=== PATIENT | female | born 1945 | race Caucasian/White ===

== ENCOUNTER 2023-02-18 10:39 | Emergency (ER) | payer OTHER ==
[2023-02-18 11:29] LABS: Absolute Lymphocytes (CBC) 1.5 K/uL (0.7-4.9); Hematocrit 37.2 % (36.0-45.0); Lymphocytes % 22.7 % (15.3-44.8); MCV 91.8 fL (80-100); MPV 8.5 fL (7.6-11.3); Platelets 260 thou/uL (152-406); RBC Red Blood Cell Count 4.05 M/uL (3.86-4.86)
[2023-02-18 11:35] LABS: Protime INR 1.04
[2023-02-18 11:46] LABS: Albumin 3.3 g/dL (3.4-5.0); Bilirubin Direct 0.1 mg/dL (0-0.2); Bilirubin Indirect, Calculated 0.2 mg/dL (0.2-0.8); Bilirubin Total 0.3 mg/dL (0.2-1.0); Magnesium 2.3 mg/dL (1.6-2.4); Potassium 3.6 mEq/L (3.5-5.1); Protein, Total 6.8 g/dL (6.4-8.2); Troponin High Sensitivity 11.7 pg/mL (<58.9)
--- NOTE | 2023-02-18 11:47 | RAD REPORT ---
EXAM DESCRIPTION: CT - Head C Spine Cap Wo Con - 02/18/2023 11:34 am CLINICAL HISTORY: Trauma, head and neck injury. Chest, abdomen and pelvis pain. DIZZINESS COMPARISON: <Comparisons> TECHNIQUE: CT head without contrast. CT cervical spine without contrast with coronal and sagittal reformatted images. CT chest, abdomen and pelvis without contrast with coronal and sagittal reformatted images of the spi ne. All CT scans are performed using dose optimization technique as appropriate and may include automated exposure control or mA/KV adjustment according to patient size. FINDINGS: CT HEAD WITHOUT CONTRAST: No intracranial hemorrhage, hydrocephalus or extra-axial fluid collection. Mild generalized brain atr ophy is present with moderate periventricular and deep white matter chronic microvascular ischemic ch anges. No areas of brain edema or midline shift. The paranasal sinuses and mastoids are clear. The calvarium is intact. CT CERVICAL SPINE WITHOUT CONTRAST: No fracture or subluxation. Mild lower cervical degenerative changes. The prevertebral soft tissues a re normal in thickness. CT CHEST, ABDOMEN, PELVIS WITHOUT CONTRAST: NOTE: Lack of contrast is a significant limitation in the assessment of trauma related findings. Spec ifically, solid organ, vascular and bowel evaluation is significantly limited. The lungs are clear.No pneumothorax or pericardial/pleural fluid. No evidence of intra-abdominal visceral injury, free fluid or free air is seen within the above detai led limitations. Significant stool is present throughout the colon postsurgical changes are present in the rectum. Pro minent right inguinal lymph nodes are seen, nonspecific, largest measuring 23 mm. No fractures. Mild lumbar degenerative changes. IMPRESSION: Negative for acute traumatic findings within the above detailed limitations. Constipation.
[2023-02-18 13:58] LABS: Specific Gravity 1.014 (1.005-1.030); Urine Bilirubin NEGATIVE (Negative); Urine Blood Negative (Negative); Urine Clarity Clear (Clear); Urine Color Light-Yellow (Yellow); Urine Glucose NEGATIVE (Negative); Urine Protein NEGATIVE (Negative); Urine Urobilinogen Normal (Normal)
--- NOTE | 2023-02-18 14:09 | EDPHYS ---
Physician Documentation [facility] Name: Inessa Graham Age: 77 yrs Sex: Female : 1945 Arrival Date: 02/18/2023 Time: 10:39 Bed 8 Private MD: ED Physician Chauncey Sainz HPI: 02/18 13:55 This 77 yrs old Female presents to ER via EMS with complaints of hypotension. sb4 17:57 Patient states that she was feeling a little dizzy this morning so she had her sb4 's home health nurse check her blood pressure and stated it was low and prompted them to call EMS. Upon EMS arrival, they said her BP was 88/66 and started some IV fluids. Patient is not on any antihypertensives or any other medications. Blood pressure is normal upon arrival to the ED. She is asymptomatic at this time. Historical: - Allergies: 10:46 No Known Allergies; ko1 - Immunization history:: Adult Immunizations up to date. - Social history:: Smoking status: Patient denies any tobacco usage or history of. ROS: 17:57 Constitutional: Negative for fever, chills, and weight loss, sb4 17:57 Neuro: Positive for dizziness, 17:57 All other systems are negative, Exam: 17:57 Constitutional: This is a well developed, well nourished patient who is awake, alert, sb4 and in no acute distress. Head/Face: Normocephalic, atraumatic. Eyes: Extra-ocular motions intact. Periorbital areas with no swelling, redness, or edema. ENT: Mucous membranes moist. Cardiovascular: Regular rate and rhythm with a normal S1 and S2. Respiratory: Lungs have equal breath sounds bilaterally, clear to auscultation and percussion. No rales, rhonchi or wheezes noted. No increased work of breathing, no retractions or nasal flaring. Abdomen/GI: Soft, non-tender, no distension. Skin: Warm, dry with normal turgor. Normal color with no rashes, no lesions, and no evidence of cellulitis. MS/ Extremity: Pulses equal, no cyanosis. Neurovascular intact. Full, normal range of motion. Neuro: Awake and alert, GCS 15, oriented to person, place, time, and situation. Motor strength 5/5 in all extremities. Sensory grossly intact. Vital Signs: 10:43 BP 117 / 56; Pulse 72; Resp 16; Temp 97; Pulse Ox 99% on R/A; ko1 11:40 BP 122 / 59 Supine; Pulse 72; Resp 16; Pulse Ox 100% on R/A; ko1 11:41 BP 127 / 62 Sitting; Pulse 74; Resp 14; Pulse Ox 99% ; ko1 11:43 BP 126 / 65 Standing; Pulse 79; Resp 14; Pulse Ox 100% on R/A; ko1 MDM: 10:41 Patient medically screened. sb4 17:57 Differential Diagnosis Hypovolemia, orthostatic hypotension, idiopathic hypotension. sb4 Data reviewed: vital signs, nurses notes, EMS record, lab test result(s), EKG, radiologic studies, I have discussed the patient's presentation/case with the attending Emergency Department Physician; and as a result, I will discharge patient. Consideration of Admission/Observation Escalation of care including admission/observation considered. Historians other than the Patient: Daughter/Son: Daughter over the phone. Counseling: I had a detailed discussion with the patient and/or guardian regarding the historical points, exam findings, and any diagnostic results supporting the discharge/admit diagnosis, lab results, radiology results, the need for outpatient follow up, for definitive care, to return to the emergency department if symptoms worsen or persist or if there are any questions or concerns that arise at home. ED course: BP normal in the ED after IV fluids. She is completely asymptomatic. Neurologic exam is benign. Instructed patient to continue to monitor her blood pressure at home and drink lots of fluids. She understands. Ambulated well. Orthostatics negative. She is safe to discharge. 02/18 10:50 Order name: Basic Metabolic Panel; Complete Time: 11:48 sb4 02/18 10:50 Order name: CBC with Diff; Complete Time: 11:40 sb4 02/18 10:50 Order name: Hepatic Function; Complete Time: 11:48 sb4 02/18 10:50 Order name: Magnesium; Complete Time: 11:48 sb4 02/18 10:50 Order name: Protime (+inr); Complete Time: 11:40 sb4 02/18 10:50 Order name: Ptt, Activated; Complete Time: 11:40 sb4 02/18 10:50 Order name: Troponin High Sensitivity; Complete Time: 11:48 sb4 02/18 10:50 Order name: Urinalysis w/ reflexes; Complete Time: 13:59 sb4 02/18 10:50 Order name: CT Traumagram (Head C Spine CAP wo con): hypotension, dizziness; Complete sb4 Time: 11:48 02/18 10:50 Order name: EKG; Complete Time: 10:50 sb4 02/18 10:50 Order name: Cardiac monitoring; Complete Time: 10:58 sb4 02/18 10:50 Order name: EKG - Nurse/Tech; Complete Time: 11:20 sb4 02/18 10:50 Order name: IV Saline Lock; Complete Time: 10:58 sb4 02/18 10:50 Order name: Labs collected and sent; Complete Time: 11:20 sb4 02/18 10:50 Order name: NPO; Complete Time: 10:58 sb4 02/18 10:50 Order name: O2 Per Protocol; Complete Time: 10:58 sb4 02/18 10:50 Order name: O2 Sat Monitoring; Complete Time: 10:58 sb4 02/18 10:50 Order name: Orthostatics; Complete Time: 11:45 sb4 EC:21 Rate is 73 beats/min. Rhythm is regular, Normal Sinus Rhythm. NE interval is normal at sb4 152 msec. QRS interval is normal at 78 msec. QT interval is normal at 431 msec. No Q waves. T waves are Normal. Clinical impression: No evidence of ischemia. Interpreted by me. Reviewed by me. Administered Medications: No medications were administered Disposition: 14:34 I was immediately available on-site in the Emergency Department for consultation in the ms3 care of the patient. Disposition Summary: 02/18/23 14:09 Discharge Ordered Notes: Location: Home sb4 Problem: new sb4 Symptoms: are resolved sb4 Condition: Stable sb4 Diagnosis - Hypotension, unspecified - resolved sb4 Followup: sb4 - With: Emergency Department - When: As needed - Reason: Trouble breathing, Worsening of condition Discharge Instructions: - Discharge Summary Sheet sb4 - Hypotension sb4 Forms: - Medication Reconciliation Form sb4 - Thank You Letter sb4 - Antibiotic Education sb4 - Prescription Opioid Use sb4 - Patient Portal Instructions sb4 - Leadership Thank You Letter sb4 Signatures: Dispatcher [employer] EDChauncey Fontana DO DO ms3 Ines Thompson, RN RN ko1 Audra Oliva, PA-C PA-C sb4
--- NOTE | 2023-02-18 14:09 | ER ---
Nurse's Notes [facility] Name: Inessa Graham Age: 77 yrs Sex: Female : 1945 Arrival Date: 02/18/2023 Time: 10:39 Bed 8 Private MD: Diagnosis: Hypotension, unspecified-resolved Presentation: 02/18 10:43 Chief complaint: EMS states: patient had an episode of dizziness and her bp was 60/40 ko1 on her automated cuff. EMS bp was 88/64. No other complaints other than a sharp pain under her right rib earlier today. Coronavirus screen: At this time, the client does not indicate any symptoms associated with coronavirus-19. Ebola Screen: No symptoms or risks identified at this time. Initial Sepsis Screen: Does the patient meet any 2 criteria? No. Patient's initial sepsis screen is negative. Does the patient have a suspected source of infection? No. Patient's initial sepsis screen is negative. Risk Assessment: Do you want to hurt yourself or someone else? Patient reports no desire to harm self or others. Onset of symptoms was February 18, 2023. 10:43 Method Of Arrival: EMS: [facility] ko1 10:43 Acuity: EDGAR 3 ko1 Triage Assessment: 10:46 General: Appears in no apparent distress. comfortable, Behavior is calm, cooperative, ko1 appropriate for age. Pain: Denies pain. Historical: - Allergies: 10:46 No Known Allergies; ko1 - Immunization history:: Adult Immunizations up to date. - Social history:: Smoking status: Patient denies any tobacco usage or history of. Screenin:17 [facility] ED Fall Risk Assessment (Adult) History of falling in the last 3 months, ko1 including since admission No falls in past 3 months (0 pts) Confusion or Disorientation No (0 pts) Intoxicated or Sedated No (0 pts) Impaired Gait No (0 pts) Mobility Assist Device Used No (0 pt) Altered Elimination No (0 pt) Score/Fall Risk Level 0 - 2 = Low Risk Oriented to surroundings, Maintained a safe environment, Educated pt \T\ family on fall prevention, incl call for assistance when getting out of bed, Assessed \T\ reinforced patient's understanding of fall precautions, Provided non-skid footwear, Hourly rounding (assess needs \T\ fall precautionary measures) done, Used ambulatory aids as needed (educated on \T\ assisted with), Used gait belt as appropriate. Abuse screen: Denies threats or abuse. Nutritional screening: No deficits noted. Tuberculosis screening: No symptoms or risk factors identified. Assessment: 11:00 Neuro: No deficits noted. Cardiovascular: Reports lightheadedness, Denies chest pain. ko1 Respiratory: No deficits noted. GI: No deficits noted. : No deficits noted. EENT: No deficits noted. Derm: No deficits noted. Musculoskeletal: No deficits noted. Vital Signs: 10:43 BP 117 / 56; Pulse 72; Resp 16; Temp 97; Pulse Ox 99% on R/A; ko1 11:40 BP 122 / 59 Supine; Pulse 72; Resp 16; Pulse Ox 100% on R/A; ko1 11:41 BP 127 / 62 Sitting; Pulse 74; Resp 14; Pulse Ox 99% ; ko1 11:43 BP 126 / 65 Standing; Pulse 79; Resp 14; Pulse Ox 100% on R/A; ko1 ED Course: 10:41 Patient arrived in ED. sb4 10:41 Audra Oliva PA-C is PHCP. sb4 10:41 Chauncey Sainz DO is Attending Physician. sb4 10:43 Ines Thompson, RN is Primary Nurse. ko1 10:46 Triage completed. ko1 10:46 Arm band placed on right wrist. Patient placed in an exam room, on a stretcher, on ko1 cost estimating manager, on pulse oximetry, Patient notified of wait time. 11:20 Basic Metabolic Panel Sent. ds4 11:20 CBC with Diff Sent. ds4 11:20 Hepatic Function Sent. ds4 11:20 Magnesium Sent. ds4 11:20 Protime (+inr) Sent. ds4 11:20 Ptt, Activated Sent. ds4 11:20 Troponin High Sensitivity Sent. ds4 11:36 CT Traumagram (Head C Spine CAP wo con): hypotension, dizziness In Process Unspecified. EDMS 14:17 Patient has correct armband on for positive identification. Placed in gown. Bed in low ko1 position. Call light in reach. Side rails up X2. Provided Education on: na. Client placed on continuous cardiac and pulse oximetry monitoring. NIBP monitoring applied. sound system installer on. Door closed. Noise minimized. Warm blanket given. Pillow given. 14:17 No provider procedures requiring assistance completed. IV discontinued, intact, ko1 bleeding controlled, No redness/swelling at site. Pressure dressing applied. Administered Medications: No medications were administered Medication: 14:17 VIS not applicable for this client. ko1 Outcome: 14:09 Discharge ordered by . lashae 14:17 Discharged to home ambulatory, with family, ko1 14:17 Condition: improved 14:17 Discharge instructions given to patient, family, Instructed on discharge instructions, follow up and referral plans. safety practices, Demonstrated understanding of instructions, follow-up care, 14:52 Patient left the ED. ko1 Signatures: Dispatcher [employer] EDMS Reilly [place]ellin ds4 Ines Thompson, STEVEN RN ko1 Audra Oliva, PA-C PA-C sb4
[2023-02-18 14:57] VITALS: TEMP 97
[2023-02-18 14:59] VITALS: O2SAT 100
[2023-02-18 15:01] VITALS: BP 126/65
--- NOTE | 2023-02-20 13:50 | EKG ---
Test Date: 2023-02-18 Test Time: 11:14:08 Television Operator: JONATHON MEASUREMENT RESULTS: Intervals: Rate: 73 [place]: 152 QRSD: 78 QT: 392 QTc: 431 Pinch: P: 80 KY: 152 QRS: 81 T: 78 INTERPRETIVE STATEMENTS: Normal sinus rhythm Possible Left atrial enlargement Septal infarct, age undetermined Abnormal ECG Compared to ECG 10/25/2021 11:26:09 Myocardial infarct finding now present Electronically Signed On 02-20-23 13:41:45 PEDICURIST by Mj Mejia
== END 2023-02-18 14:52 | disposition home or self-care (01) ==
LOC: ER 10:39
DX: I95.9 Hypotension, unspecified (principal); R42 Dizziness and giddiness
CPT/HCPCS: 36415; 70450; 71250; 72125; 80048; 80076; 81003; 83735; 84484; 85025; 85610; 85730; 93005; 99284

== ENCOUNTER 2024-10-22 12:32 | Emergency (ER) | payer OTHER ==
--- NOTE | 2024-10-22 13:01 | RAD REPORT ---
EXAM: Chest Single View HISTORY: 78 years Female PALPITATIONS COMPARISON: No prior exams FINDINGS: LUNGS/PLEURA: Possible 13 mm right upper lobe nodule. No pleural effusions or pneumothorax. No pulmon christopher edema. Emphysema. CARDIAC/MEDIASTINUM: The cardiac silhouette is within normal limits. UPPER ABDOMEN: No significant abnormality. BONES: No acute abnormality. LINES/TUBES/OTHER: N/A IMPRESSION: No evidence of acute cardiopulmonary disease. Emphysema with 13 mm right upper lobe nodule. Further e valuation with chest CT which need not be emergent is recommended.
[2024-10-22 13:19] LABS: Absolute Lymphocytes (CBC) 1.7 K/uL (0.7-4.9); Hematocrit 39.9 % (36.0-45.0); Hemoglobin 13.2 g/dL (12.0-15.0); MCH 30.2 pg (27.0-35.0); MCHC 32.9 g/dL (32.0-36.0); MCV 91.6 fL (80-100); MPV 9.2 fL (7.6-11.3); Nucleated RBC Absolute Count 0.0 (0-0); Nucleated Red Blood Cells % 0.0 % (0-0); RBC Red Blood Cell Count 4.36 M/uL (3.86-4.86); White Blood Count 7.40 thou/uL (4.3-10.9)
[2024-10-22 13:38] LABS: Anion Gap 6.2 mEq/L (5.0-15.0); BUN Blood Urea Nitrogen 20.0 mg/dL (7-18); Glucose Level 78.0 mg/dL (74-106); Magnesium 2.1 mg/dL (1.6-2.4); NT PRO-BNP 213.0 pg/mL (<450); Potassium 4.2 mEq/L (3.5-5.1); Troponin High Sensitivity 8.5 pg/mL (<58.9)
[2024-10-22] MEDS ORDERED: ASPIRIN 81 MG CHEWABLE TABLET ONE (14:36)
--- NOTE | 2024-10-22 14:48 | EDPHYS ---
Physician Documentation [facility] Name: Inessa Graham Age: 78 yrs Sex: Female : 1945 Arrival Date: 10/22/2024 Time: 12:32 Bed 17 Private MD: ED Physician Chauncey Sainz HPI: 10/22 14:44 This 78 yrs old Female presents to ER via EMS with complaints of AFIB w/RVR. kb 14:44 Patient is a 78-year-old female with no medical history who presents for low blood kb pressure. States she was not feeling very well this morning, has been his caregiver checked her blood pressure and it was in the 80s systolic so they called 911 and came in. EMS reports A-fib on the monitor with a rate of 130-150 upon their arrival, rate has improved to 100-130 after 500 mL of NS. Patient states she feels back to normal and has no complaints. Denies chest pain or shortness of breath.. Historical: - Allergies: 12:55 No Known Allergies; hb - PMHx: 12:55 None; hb - Immunization history:: Adult Immunizations unknown. - Infectious Disease History:: Denies. - Social history:: Smoking status: Patient denies any tobacco usage or history of. ROS: 14:42 Constitutional: As per HPI kb Exam: 12:50 Constitutional: This is a well developed, well nourished patient who is awake, alert, kb and in no acute distress. Head/Face: Normocephalic, atraumatic. ENT: Moist Mucous membranes Respiratory: Respirations even and unlabored. No increased work of breathing. Talking in full sentences Abdomen/GI: Soft, non-tender. No distention 12:50 Cardiovascular: Rate: tachycardic, Rhythm: irregularly irregular, 13:48 ECG was reviewed by the Attending Physician. kb Vital Signs: 12:45 BP 148 / 97; Pulse 131; Resp 18; Temp 98.1; Pulse Ox 100% on R/A; Weight 60.78 kg; hb Height 5 ft. 5 in. ; Pain 0/10; 14:00 BP 133 / 80; Pulse 81; Resp 18; Pulse Ox 98% on R/A; kj2 15:06 BP 131 / 75; Pulse 78; Resp 20; Temp 98; Pulse Ox 100% on R/A; kj2 15:59 BP 124 / 78; Pulse 76; Resp 20; Temp 98; Pulse Ox 100% on R/A; kj2 12:45 Body Mass Index 22.30 (60.78 kg, 165.1 cm) hb 12:45 Pain Scale: Adult hb MDM: 12:46 Medical Screening Exam initiated kb 13:30 ED course: Patient has converted on her own to sinus rhythm with a rate of 82. kb 14:45 Differential diagnosis: Arrhythmia, DE, dehydration, abnormal electrolytes. Data kb reviewed: vital signs, nurses notes. Consideration of Admission/Observation Escalation of care including admission/observation considered. Admission considered but patient prefers not to be admitted to the hospital. Patient called her PCP and was able to get an appointment for follow-up for tomorrow at 2:00 and will get a referral to a herpetology teacher at that time. Discussed risks, including blood clots, stroke, DE and with patient and daughter (who was on the phone). Verbal understanding received. Patient will be given aspirin 81 mg now and will take it daily until told otherwise by PCP/herpetology teacher.. Management of patient was discussed with the following: Dr Sainz. Historians other than the Patient: EMS: [facility]. Counseling: I had a detailed discussion with the patient and/or guardian regarding the historical points, exam findings, and any diagnostic results supporting the discharge/admit diagnosis, lab results, radiology results, the need for outpatient follow up, a herpetology teacher, to return to the emergency department if symptoms worsen or persist or if there are any questions or concerns that arise at home. 10/22 12:46 Order name: Basic Metabolic Panel; Complete Time: 13:39 kb 10/22 12:46 Order name: CBC with Diff; Complete Time: 13:22 kb 10/22 12:46 Order name: Magnesium; Complete Time: 13:39 kb 10/22 12:46 Order name: NT PRO-BNP; Complete Time: 13:39 kb 10/22 12:46 Order name: Troponin HS; Complete Time: 13:39 kb 10/22 12:46 Order name: XRAY Chest (1 view); Complete Time: 13:03 kb 10/22 12:46 Order name: Cardiac monitoring; Complete Time: 14:14 kb 10/22 12:46 Order name: EKG - Nurse/Tech; Complete Time: 14:14 kb 10/22 12:46 Order name: IV Saline Lock; Complete Time: 14:14 kb 10/22 12:46 Order name: Labs collected and sent; Complete Time: 14:14 kb 10/22 12:46 Order name: O2 Per Protocol; Complete Time: 14:14 kb 10/22 12:46 Order name: O2 Sat Monitoring; Complete Time: 14:14 kb 10/22 13:54 Order name: Vital Signs; Complete Time: 14:14 kb EC:48 Rate is 74 beats/min. Rhythm is regular. QRS Sigel is Normal. OH interval is normal at kb 150 msec. QRS interval is normal at 88 msec. QT interval is normal at 406 msec. Administered Medications: 14:45 Drug: Aspirin PO 81 mg PO once Route: PO; kj2 15:10 Follow up: Response: No adverse reaction kj2 Disposition: 16:08 I was immediately available on-site in the Emergency Department for consultation in the ms3 care of the patient. Disposition Summary: 10/22/24 14:47 Discharge Ordered Notes: Location: Home kb Condition: Stable kb Diagnosis - Paroxysmal atrial fibrillation kb Followup: kb - With: Emergency Department - When: As needed - Reason: Worsening of condition Followup: kb - With: Private Physician - When: 2 - 3 days - Reason: Recheck today's complaints, Continuance of care, Re-evaluation by your physician Discharge Instructions: - Discharge Summary Sheet kb - Atrial Fibrillation, [id number] kb Forms: - Medication Reconciliation Form kb - Antibiotic Education kb - Prescription Opioid Use kb - Patient Portal Instructions kb - Leadership Thank You Letter kb Prescriptions: - aspirin 81 mg Oral tablet,chewable - take 1 tablet ORAL route daily; 30 tablet; Refills: 0, Product Selection kb Permitted Signatures: Dispatcher [employer] EDMS Shanel Mccarthy, JAWBONE BREAKER-C JAWBONE BREAKER-Ckb Rosy Rashid, RN RN Chauncey Cartagena DO DO ms3 Nadia Villagomez RN RN kj2 Corrections: (The following items were deleted from the chart) 12:47 12:47 BASIC METABOLIC PANEL+C.LAB.BRZ ordered. EDMS EDMS 12:47 12:47 CBC+H.LAB.BRZ ordered. EDMS EDMS 12:47 12:47 MAGNESIUM+C.LAB.BRZ ordered. EDMS EDMS 12:47 12:47 PROBNP+C.LAB.BRZ ordered. EDMS EDMS 12:47 12:47 Troponin High Sensitivity+C.LAB.BRZ ordered. EDMS EDMS 12:47 12:47 Chest Single View+RAD.RAD.BRZ ordered. EDMS EDMS 14:43 13:54 Constitutional: This is a well developed, well nourished patient who is awake, kb alert, and in no acute distress. kb 14:43 13:54 Constitutional: This is a well developed, well nourished patient who is awake, kb alert, and in no acute distress. Head/Face: Normocephalic, atraumatic. ENT: Moist Mucous membranes Respiratory: Respirations even and unlabored. No increased work of breathing. Talking in full sentences Abdomen/GI: Soft, non-tender. No distention kb 14: 14:42 Cardiovascular: Rate: tachycardic, Rhythm: irregularly irregular, kb kb
--- NOTE | 2024-10-22 14:48 | ER ---
Nurse's Notes [facility] Name: Inessa Graham Age: 78 yrs Sex: Female : 1945 Arrival Date: 10/22/2024 Time: 12:32 Bed 17 Private MD: Diagnosis: Paroxysmal atrial fibrillation Presentation: 10/22 12:45 Chief complaint: EMS states: Home health nurse called 911 for SBP 80s. On scene BP hb 112/66, HR 120-150, AFib w/PVCs. Denies CP/SOB/dizziness. NS 500ms to 20g LAC. Coronavirus screen: At this time, the client does not indicate any symptoms associated with coronavirus-19. Ebola Screen: No symptoms or risks identified at this time. Initial Sepsis Screen: Does the patient meet any 2 criteria? No. Patient's initial sepsis screen is negative. Does the patient have a suspected source of infection? No. Patient's initial sepsis screen is negative. Risk Assessment: Do you want to hurt yourself or someone else? Patient reports no desire to harm self or others. Onset of symptoms was October 22, 2024. 12:45 Method Of Arrival: EMS: [facility] 12:45 Method Of Arrival: EMS: [facility] 12:45 Acuity: EDGAR 2 hb Triage Assessment: 15:07 General: Appears in no apparent distress. Behavior is calm, cooperative. Pain: Denies kj2 pain. Historical: - Allergies: 12:55 No Known Allergies; hb - PMHx: 12:55 None; hb - Immunization history:: Adult Immunizations unknown. - Infectious Disease History:: Denies. - Social history:: Smoking status: Patient denies any tobacco usage or history of. Screenin:00 [facility] ED Fall Risk Assessment (Adult) History of falling in the last 3 months, kj2 including since admission No falls in past 3 months (0 pts) Confusion or Disorientation No (0 pts) Intoxicated or Sedated No (0 pts) Impaired Gait No (0 pts) Mobility Assist Device Used No (0 pt) Altered Elimination No (0 pt) Score/Fall Risk Level 0 - 2 = Low Risk Maintained a safe environment, Hourly rounding (assess needs \T\ fall precautionary measures) done. Abuse screen: Denies threats or abuse. Denies injuries from another. Nutritional screening: No deficits noted. Tuberculosis screening: No symptoms or risk factors identified. Assessment: 14:00 Reassessment: Patient appears in no apparent distress at this time. Patient and/or kj2 family updated on plan of care and expected duration. Pain level reassessed. Patient is alert, oriented x 3, equal unlabored respirations, skin warm/dry/pink. 14:50 Reassessment: Patient appears in no apparent distress at this time. Patient and/or kj2 family updated on plan of care and expected duration. Pain level reassessed. Patient is alert, oriented x 3, equal unlabored respirations, skin warm/dry/pink. 15:42 Reassessment: transportation is in route, 10 minutes away. kj2 15:59 Reassessment: Patient appears in no apparent distress at this time. Patient and/or kj2 family updated on plan of care and expected duration. Pain level reassessed. Patient is alert, oriented x 3, equal unlabored respirations, skin warm/dry/pink. Vital Signs: 12:45 BP 148 / 97; Pulse 131; Resp 18; Temp 98.1; Pulse Ox 100% on R/A; Weight 60.78 kg; hb Height 5 ft. 5 in. ; Pain 0/10; 14:00 BP 133 / 80; Pulse 81; Resp 18; Pulse Ox 98% on R/A; kj2 15:06 BP 131 / 75; Pulse 78; Resp 20; Temp 98; Pulse Ox 100% on R/A; kj2 15:59 BP 124 / 78; Pulse 76; Resp 20; Temp 98; Pulse Ox 100% on R/A; kj2 12:45 Body Mass Index 22.30 (60.78 kg, 165.1 cm) hb 12:45 Pain Scale: Adult hb ED Course: 12:46 Patient arrived in ED. kb 12:46 [facility]cc[facility]C [facility] kb 12:46 Chauncey Sainz DO is Attending Physician. kb 12:54 Triage completed. hb 12:55 Arm band placed on. hb 12:59 XRAY Chest (1 view) In Process Unspecified. EDMS 13:00 Patient has correct armband on for positive identification. Bed in low position. Call kj2 light in reach. Provided Education on: call light. 13:00 Maintain EMS IV. Dressing intact. Good blood return noted. Site clean \T\ dry. Gauge \T\ kj 2 site: 20g left AC. Flushed with 10 mL NS. 13:18 Nadia Villagomez, RN is Primary Nurse. kj2 15:08 No provider procedures requiring assistance completed. kj2 15:10 IV discontinued, intact, bleeding controlled, No redness/swelling at site. Pressure kj2 dressing applied. Administered Medications: 14:45 Drug: Aspirin PO 81 mg PO once Route: PO; kj2 15:10 Follow up: Response: No adverse reaction kj2 Medication: 15:10 VIS not applicable for this client. kj2 Outcome: 14:47 Discharge ordered by . norma 15:09 Discharged to home via wheelchair, kj2 15:09 Condition: stable 15:09 Discharge instructions given to patient, Instructed on discharge instructions, follow up and referral plans. Demonstrated understanding of instructions, follow-up care, 16:05 Patient left the ED. kj2 Signatures: Dispatcher [employer] EDMS Shanel Mccarthy, MAKEDA-C [employer]-Rosy Salcido RN STEVEN Nadia Villagomez, STEVEN RN kj2
[2024-10-22] MEDS ORDERED: NA CHLORIDE 0.9% 1,000 ML ONE (15:38)
[2024-10-22 16:30] VITALS: TEMP 98; O2SAT 100
[2024-10-22 16:32] VITALS: BP 124/78
== END 2024-10-22 16:05 | disposition home or self-care (01) ==
LOC: ER 12:32
DX: I48.0 Paroxysmal atrial fibrillation (principal)
CPT/HCPCS: 93005; 85025; 80048; 36415; 83735; 84484; 83880; 71045; 99284; J7030